=== PATIENT | female | born 1960 | race Caucasian/White ===

== ENCOUNTER → 2021-05-03 09:47 | Outpatient (CLI) | payer OTHER, SELFPAY ==
[2015-04-16 17:54] VITALS: BMI 31.2
[2021-05-03 11:24] LABS: Absolute Lymphocyte Count 1.68 X10^3/uL (0.83-4.51); Absolute Neutrophil Count 2.7 X10^3/uL (2.0-7.7); Basophil# 0.05 X10^3/uL; Eosinophil# 0.28 X10^3/uL; Eosinophils% 5.4 % (0-5); Hemoglobin 12.2 g/dL (12.0-15.0); Lymphocyte # 1.68 X10^3/ul (0.83-4.51); Lymphocyte % 32.3 % (19-41); Mean Corp Hgb Conc 32.1 g/dL (32-36); Mean Corpuscular Hgb 28.8 pg (27.0-32.0); Mean Corpuscular Volume 89.6 fL (81-99); Mean Platelet Vol. 9.2 fl (6.2-12.0); Monocyte# 0.53 X10^3/uL; Monocyte% 10.2 % (0-10); NRBC Flagged by Analyzer 0 % (0-5); Neutrophil # 2.65 X10^3/uL (2.7-7.7); Neutrophil % 50.9 % (47-70); Platelet Count 236 K/mm3 (150-450); RBC Distribution Width CV 13.4 % (11.6-14.6); RBC Distribution Width SD 43.9 fl (35.1-43.9); Red Blood Count 4.24 M/mm3 (4.2-5.4); White Blood Count 5.2 K/mm3 (4.4-11.0)
[2021-05-03 11:58] LABS: ALB/GLOB Ratio 1.1 RATIO (0.9-2.4); AST(SGOT) 19 U/L (15-37); Alanine Aminotransfer ALT/SGPT 28 U/L (13-56); Albumin, Serum 3.8 g/dL (3.2-5.0); Alkaline Phosphatase 54 U/L (45-117); Anion Gap 6 (5-15); BUN 21 mg/dL (7-18); BUN/Creat Ratio 33.3 RATIO (10-20); Calcium,Total 8.9 mg/dL (8.5-10.1); Chloride 104 mmol/L (98-107); Creatinine, Serum 0.63 mg/dL (0.55-1.02); EST Glomerular Filtration Rate 103 mL/min (>60); Est Glom Filt Rate - Afr Amer 124 mL/min (>60); Ferritin 119 ng/mL (8-252); Globulin 3.5 g/dL (2.2-4.2); Glucose 89 mg/dL (74-106); Iron 69 ug/dL (50-170); Iron Binding Capacity,Total 239 ug/dL (250-450); Potassium 3.9 mmol/L (3.5-5.1); Protein, Total 7.3 g/dL (6.4-8.2); Sodium Level 138 mmol/L (136-145)
== END ==
PROVIDERS: PCP Family Medicine
DX: D68.59 Other primary thrombophilia (principal)
CPT/HCPCS: 36415; 80053; 82728; 83540; 83550; 85025

== ENCOUNTER 2024-03-27 22:10 | Inpatient (IN) | payer OTHER, SELFPAY ==
[2024-03-27 22:12] VITALS: BP 133/75; PULSE 109; RESP 16; TEMP 37.1; O2SAT 98; BMI 27.4
[2024-03-27 22:14] VITALS: BP 133/75; PULSE 19; RESP 16; TEMP 37.1; O2SAT 98
[2024-03-27 22:43] VITALS: TEMP 37.8
[2024-03-27 22:45] LABS: Absolute Lymphocyte Count 0.29 X10^3/uL (0.83-4.51); Absolute Neutrophil Count 10.1 X10^3/uL (2.0-7.7); Basophil# 0.02 X10^3/uL; Basophil% 0.2 % (0-1); Eosinophil# 0.02 X10^3/uL; Eosinophils% 0.2 % (0-5); Hematocrit 35.7 % (37-47); Hemoglobin 11.8 g/dL (12.0-15.0); Lymphocyte # 0.29 X10^3/ul (0.83-4.51); Lymphocyte % 2.7 % (19-41); Mean Corp Hgb Conc 33.1 g/dL (32-36); Mean Corpuscular Hgb 28.9 pg (27.0-32.0); Mean Corpuscular Volume 87.3 fL (81-99); Mean Platelet Vol. 8.5 fl (6.2-12.0); Monocyte# 0.37 X10^3/uL; Monocyte% 3.4 % (0-10); NRBC Flagged by Analyzer 0 % (0-5); Neutrophil # 10.06 X10^3/uL (2.7-7.7); POSITIVE DIFFERENTIAL YES; Platelet Count 205 K/mm3 (150-450); RBC Distribution Width CV 13.7 % (11.6-14.6); RBC Distribution Width SD 43.8 fl (35.1-43.9); Red Blood Count 4.09 M/mm3 (4.2-5.4); White Blood Count 10.8 K/mm3 (4.4-11.0)
--- NOTE | 2024-03-27 22:46 | US_ITS ---
STUDY: VENOUS DOPPLER ULTRASOUND - RIGHT LOWER EXTREMITY REASON FOR EXAM: Female, 63 years old. right leg pain TECHNIQUE: Ultrasound evaluation of the deep vein system to include wood-scale imaging and compression was performed. Wood-scale imaging and Doppler sonographic evaluation, including duplex spectral analysis and qualitative color flow sonography, was performed. COMPARISON: None. FINDINGS: Common Femoral Vein: Normal compression, spontaneity and augmentation. Normal color Doppler. Common Femoral Vein/Greater Saphenous Junction: Normal compression, spontaneity and augmentation. Normal color Doppler. Deep Femoral Vein: Normal compression, spontaneity and augmentation. Normal color Doppler. Femoral Proximal: Normal compression, spontaneity and augmentation. Normal color Doppler. Femoral Middle: Normal compression, spontaneity and augmentation. Normal color Doppler. Femoral Distal: Normal compression, spontaneity and augmentation. Normal color Doppler. Popliteal Vein: Normal compression, spontaneity and augmentation. Normal color Doppler. Posterior Tibial Vein: Normal compression, spontaneity and augmentation. Normal color Doppler. Peroneal Vein: Normal compression, spontaneity and augmentation. Normal color Doppler. US/Venous Duplex Imag/Limited/Uni IMPRESSION: Normal venous Doppler ultrasound of the lower extremity. Electronically Signed: Prieto Velásquez MD at 23:54 EDT ,
--- NOTE | 2024-03-27 22:51 | EDS_ITS ---
HPI <Dr. Osman Aaron MD - Last Filed: 03/28/24 00:08> History of Present Illness Chief Complaint: General Illness Detail of Chief Complaint: Ache, right medial proximal thigh pain Informant: patient Onset/Context/Timing Onset: Today (Approximately 1400) Context: Sudden Onset Timing: Continuous Quality: Aching discomfort right medial thigh and achiness all over Location: Document under quality Current Severity: Mild Maximum Severity: Severe Worsened by: Palpation of the medial right thigh and inguinal area Relieved by: Nothing Associated Symptoms Associated Symptoms: Patient did complain of chills. She denied fever. She did take ibuprofen Narrative Narrative: Patient is a 63-year-old woman. She has history of DVT right lower extremity and PE. She is on Xarelto. She states she has not missed any of her doses. She sees a liability analyst oncologist because the PE and DVT were unprovoked. She has no history of cancer. She denies recent upper respiratory viral symptoms. She denies cough or shortness of breath. She denies abdominal pain. She denies nausea, vomit diarrhea. She denies dysuria, frequency, urgency or hematuria. She has not noted any skin lesions. When asked if she has ever had pain like this before she states when I was diagnosed with blood clot my leg. Prior similar symptoms: Yes Recent Illness/Hospitalization: No PFSH <Dr. Osman Aaron MD - Last Filed: 03/28/24 00:08> [facility] Medical History (Updated 03/28/24 @ 02:[address] Jack Corona DO) Hyperlipemia Atrial fibrillation Hx of pulmonary embolus Hx of deep venous thrombosis Home Medications ?Medication ?Instructions ?Recorded ?Last Taken ?Type ezetimibe 10 mg tablet 10 mg PO DAILY 03/27/24 Unknown History rivaroxaban 20 mg tablet (Xarelto) 20 mg PO QPM 03/27/24 Unknown History Allergy/AdvReac Type Severity Reaction Status Date / Time No Known Allergies Allergy Verified 03/27/24 22:11 Family History (Updated 03/28/24 @ 02:[address] Cheryl Parr MD) Grandfather Heart disease Grandmother Heart disease Surgical History Hx of cholecystectomy Social History (Updated 03/27/24 @ 22:[address] Osman Aaron MD) household members: spouse Smoking Status: Never smoker alcohol intake: never substance use type: does not use ROS <Dr. Osman Aaron MD - Last Filed: 03/28/24 00:08> ROS ED Constitutional Constitutional ED: Reports chills; Denies fever(s), subjective or sweats Eyes Eyes: Denies blurry vision, change in vision or diplopia ENT ENT ED: Denies ear pain, rhinorrhea or sore throat Cardiovascular Cardiovascular: Denies chest pain, orthopnea, palpitations, paroxysmal nocturnal dyspnea or racing heartbeat Respiratory/Chest Respiratory/Chest: Denies cough, dyspnea, dyspnea on exertion, orthopnea, paroxysmal nocturnal dyspnea or sputum Gastrointestinal Gastrointestinal: Reports abdominal pain; Denies constipation, diarrhea, melena, nausea or vomiting Genitourinary Genitourinary ED: Denies dysuria, hematuria or urinary frequency Musculoskeletal Musculoskeletal: Reports arthralgias and myalgias; Denies back pain or neck pain Integumentary Denies abscess or rash Neurologic Neurologic: Denies paresthesias or weakness Endocrine Endocrinology: Denies cold intolerance or heat intolerance Hematologic/Lymphatic Hematologic/Lymphatic: Reports systems reviewed and no addt'l complaints, except as documented EXAM <Dr. Osman Aaron MD - Last Filed: 03/28/24 00:08> Physical Exam Const Vital Signs: 03/27/24 22:12 03/27/24 22:14 03/27/24 22:22 Temperature 98.8 F 98.8 F Temperature Source Temporal Temporal Pulse Rate 109 H 19 L Respiratory Rate 16 16 Respiratory Effort Normal Respiratory Pattern Tachypnea Blood Pressure 133/75 H 133/75 H Blood Pressure Mean 94 94 Pulse Ox 98 98 Oxygen Delivery Method Room Air Room Air 03/27/24 22:43 03/27/24 23:14 03/28/24 00:00 Temperature 100.1 F H 100.1 F H 99 F Temperature Source Oral Oral Oral Pulse Rate 96 98 Respiratory Rate 14 19 H Respiratory Effort Respiratory Pattern Blood Pressure 98/52 L 106/57 L Blood Pressure Mean 67 73 Pulse Ox 97 95 Oxygen Delivery Method Room Air Room Air 03/28/24 00:00 03/28/24 00:58 03/28/24 02:00 Temperature 99 F 98.1 F 98.2 F Temperature Source Oral Oral Oral Pulse Rate 86 87 Respiratory Rate 16 15 Respiratory Effort Respiratory Pattern Blood Pressure 96/57 L 89/47 L Blood Pressure Mean 70 61 Pulse Ox 98 95 Oxygen Delivery Method Room Air Room Air 03/28/24 02:00 Temperature Temperature Source Pulse Rate 87 Respiratory Rate Respiratory Effort Respiratory Pattern Blood Pressure Blood Pressure Mean Pulse Ox Oxygen Delivery Method Positive well nourished and well developed Constitutional Narrative: Appears uncomfortable and ill. Patient felt much warmer than documented temperature. Nurse was asked to repeat and is 100.1. General Appearance ED: well developed and pallor HEENT Reports dry mucous membranes HEENT Narrative: Head is atraumatic normocephalic. Ears normal. Nares patent. Posterior pharynx is normal. Mouth ED: Yes dry mucous membranes Mouth: dry mucous membranes Eyes PERRL and EOMs intact bilaterally General Eye ED: Negative for pale conjunctiva or scleral icterus Neck no lymphadenopathy, supple and no JVD Chest Wall inspection of chest normal and palpation of chest normal Resp normal respiratory effort and clear to auscultation bilaterally Cardio regular rhythm, S1 normal heart sound and S2 normal heart sound Rate: tachycardic GI normal to inspection, nondistended, normoactive bowel sounds, non-tender, non- distended and no masses; Negative for hepatosplenomegaly Auscultation: hypoactive bowel sounds Palpation: soft Narrative: Patient has significant tenderness right inguinal area possibly shoddy nodes. Difficult to assess because of patient complaining of severe pain. Back/Spine no CVA tenderness Extremity Extremity Narrative: Old scar medial right leg. There is no discoloration, there is slight prominent vessels in the thigh compared to the left. Patient states that is normal. There is no asymmetry. There is tenderness in the abductor canal. General Extremety ED: Yes tenderness; Negative for edema General Extremity: Negative for edema Neuro oriented x3 and CN's II-XII intact bilaterally Sensorium / Orientation: alert Psych mental status grossly normal Skin no rashes or lesions noted, no wounds and skin turgor normal General Skin Exam: pallor; Negative for jaundice <Dr. Jack Corona, DO - Last Filed: 03/28/24 02:21> Physical Exam Const Vital Signs: 03/27/24 22:12 03/27/24 22:14 03/27/24 22:22 Temperature 98.8 F 98.8 F Temperature Source Temporal Temporal Pulse Rate 109 H 19 L Respiratory Rate 16 16 Respiratory Effort Normal Respiratory Pattern Tachypnea Blood Pressure 133/75 H 133/75 H Blood Pressure Mean 94 94 Pulse Ox 98 98 Oxygen Delivery Method Room Air Room Air 03/27/24 22:43 03/27/24 23:14 03/28/24 00:00 Temperature 100.1 F H 100.1 F H 99 F Temperature Source Oral Oral Oral Pulse Rate 96 98 Respiratory Rate 14 19 H Respiratory Effort Respiratory Pattern Blood Pressure 98/52 L 106/57 L Blood Pressure Mean 67 73 Pulse Ox 97 95 Oxygen Delivery Method Room Air Room Air 03/28/24 00:00 03/28/24 00:58 03/28/24 02:00 Temperature 99 F 98.1 F 98.2 F Temperature Source Oral Oral Oral Pulse Rate 86 87 Respiratory Rate 16 15 Respiratory Effort Respiratory Pattern Blood Pressure 96/57 L 89/47 L Blood Pressure Mean 70 61 Pulse Ox 98 95 Oxygen Delivery Method Room Air Room Air 03/28/24 02:00 Temperature Temperature Source Pulse Rate 87 Respiratory Rate Respiratory Effort Respiratory Pattern Blood Pressure Blood Pressure Mean Pulse Ox Oxygen Delivery Method MDM <Dr. Osman Aaron MD - Last Filed: 03/28/24 00:08> [facility] Narrative Medical decision making narrative: The to evaluate for VTE which can cause elevated temperature. She may also have atypical presentation for infectious process with aches. Clinically I do not believe she has an abscess of her right thigh. There is no erythema, induration or warmth of the right thigh compared to the left. Workup included venous duplex study, CBC and comprehensive metabolic panel to assess white count, H&H differential as well as for any endorgan dysfunction since infectious process is in the differential. Her second set of vitals documented 2243 reveals a pulse of 19. Suspect it is 109. Her repeat temperature is now 100.1. Lab Data Attestation: I reviewed the patient's lab results. Lab results narrative: White count is upper end of normal with shift. H&H reveals mild anemia with normal indices. Comprehensive metabolic panel is unremarkable. Glucose is elevated 123 with a normal CO2 anion gap. Lactate is normal. Labs: Laboratory Results - last 24 hr 03/27/24 22:36 WBC 10.8 RBC 4.09 L Hgb 11.8 L Hct 35.7 L MCV 87.3 MCH 28.9 MCHC 33.1 RDW Std Deviation 43.8 RDW Coeff of Becky 13.7 Plt Count 205 MPV 8.5 Immature Gran % (Auto) 0.500 Neut % (Auto) 93.0 H Lymph % (Auto) 2.7 L Hardin % (Auto) 3.4 Eos % (Auto) 0.2 Baso % (Auto) 0.2 Absolute Neuts (auto) 10.1 H Absolute Lymphs (auto) 0.29 L Nucleated RBC % 0 Differential Comment SEE COMMENT Platelet Estimate ADEQUATE RBC Morphology N CHROM Anisocytosis RARE Sodium 137 Potassium 3.6 Chloride 104 Carbon Dioxide 26.0 Anion Gap 7 BUN 15 Creatinine 0.85 Estim Creat Clear Calc 70.37 Est GFR (MDRD) Af Amer 88 Est GFR (MDRD) Non-Af 72 BUN/Creatinine Ratio 17.7 Glucose 123 H Lactic Acid 1.0 Calcium 9.1 Total Bilirubin 0.60 AST 23 ALT 33 Alkaline Phosphatase 62 Total Protein 7.1 Albumin 4.1 Globulin 3.0 Albumin/Globulin Ratio 1.4 Radiography Diagnostic Testing: Clinical Impression(s) from Imaging Studies Venous Duplex 03/27/24 22:46 IMPRESSION: Normal venous Doppler ultrasound of the lower extremity. Electronically Signed: Prieto Velásquez MD at 23:54 EDT , Lower Extremity CT 03/28/24 00:05 IMPRESSION: Hazy fat stranding of the right inguinal region without organized fluid collection, to suggest abscess. No acute osseous abnormality of the left thigh. Electronically Signed: Jaun Fregoso MD at 1:49 EDT , Venous duplex study results were read. Additional Tests and Interventions Additional Tests or Interventions: Reviewing patient's document, vital signs I noted that her blood pressure was documented being 98/52 at 2314 and her temperature at that time was 100.1. Nurse was asked to repeat her temperature since she was feels much warmer than 100.1 and a liter bolus was ordered. Blood cultures were ordered at this time. She still complains of the amount of pain. She was administered 4 mg of morphine by the nurse. CT of the right femur/thigh was ordered with contrast to assess for fasciitis, abscess. <Dr. Jack Corona, DO - Last Filed: 03/28/24 02:21> [facility] Lab Data Labs: Laboratory Results - last 24 hr 03/27/24 22:36 WBC 10.8 RBC 4.09 L Hgb 11.8 L Hct 35.7 L MCV 87.3 MCH 28.9 MCHC 33.1 RDW Std Deviation 43.8 RDW Coeff of Becky 13.7 Plt Count 205 MPV 8.5 Immature Gran % (Auto) 0.500 Neut % (Auto) 93.0 H Lymph % (Auto) 2.7 L Hardin % (Auto) 3.4 Eos % (Auto) 0.2 Baso % (Auto) 0.2 Absolute Neuts (auto) 10.1 H Absolute Lymphs (auto) 0.29 L Nucleated RBC % 0 Differential Comment SEE COMMENT Platelet Estimate ADEQUATE RBC Morphology N CHROM Anisocytosis RARE Sodium 137 Potassium 3.6 Chloride 104 Carbon Dioxide 26.0 Anion Gap 7 BUN 15 Creatinine 0.85 Estim Creat Clear Calc 70.37 Est GFR (MDRD) Af Amer 88 Est GFR (MDRD) Non-Af 72 BUN/Creatinine Ratio 17.7 Glucose 123 H Lactic Acid 1.0 Calcium 9.1 Total Bilirubin 0.60 AST 23 ALT 33 Alkaline Phosphatase 62 Total Protein 7.1 Albumin 4.1 Globulin 3.0 Albumin/Globulin Ratio 1.4 Radiography Diagnostic Testing: Clinical Impression(s) from Imaging Studies Venous Duplex 03/27/24 22:46 IMPRESSION: Normal venous Doppler ultrasound of the lower extremity. Electronically Signed: Prieto Velásquez MD at 23:54 EDT , Lower Extremity CT 03/28/24 00:05 IMPRESSION: Hazy fat stranding of the right inguinal region without organized fluid collection, to suggest abscess. No acute osseous abnormality of the left thigh. Electronically Signed: Jaun Fregoso MD at 1:49 EDT , Management Discussion w/another healthcare provider: Hospitalist Additional Tests and Interventions Additional Tests or Interventions: Reviewing patient's document, vital signs I noted that her blood pressure was documented being 98/52 at 2314 and her temperature at that time was 100.1. Nurse was asked to repeat her temperature since she was feels much warmer than 100.1 and a liter bolus was ordered. Blood cultures were ordered at this time. She still complains of the amount of pain. She was administered 4 mg of morphi ne by the nurse. CT of the right femur/thigh was ordered with contrast to assess for fasciitis, abscess. The patient was signed out to me while awaiting results of her CT scan. The CT scan revealed fat stranding concerning for infection without obvious fluid collection or necrotic lymph node. The patient developed a low-grade fever and also dropped her blood pressure while she was in the ER. At this time as she has persistent pain and inflammatory changes on her CT scan as well as borderline hypotension the safest option is to start IV antibiotics and admit to the hospital for further monitoring while blood cultures are pending. Secondary to this the case was discussed with the hospitalist and she agrees to admit the patient for continued care. Discharge Plan Triage Chief Complaint: General Illness ED Provider: Osman Aaron Dx/Rx/DC Orders Clinical Impression: Cellulitis of leg, right, Hypotension, Current use of intermodal owner operator truck driver anticoagulation Prescriptions: No Action ezetimibe 10 mg tablet 10 mg PO DAILY Xarelto 20 mg tablet 20 mg PO QPM Primary Care Provider: Devon Braden Referrals: Devon Braden DO [Primary Care Provider] - Print Language: Kosovan Disposition Disposition: Acute Care Hospital [facility]
[2024-03-27 23:08] LABS: ALB/GLOB Ratio 1.4 RATIO (0.9-2.4); AST(SGOT) 23 U/L (15-37); Alanine Aminotransfer ALT/SGPT 33 U/L (13-56); Albumin, Serum 4.1 g/dL (3.2-5.0); Alkaline Phosphatase 62 U/L (45-117); Anion Gap 7 (5-15); BUN 15 mg/dL (7-18); BUN/Creat Ratio 17.7 RATIO (10-20); Calcium,Total 9.1 mg/dL (8.5-10.1); Chloride 104 mmol/L (98-107); Creatinine, Serum 0.85 mg/dL (0.55-1.02); EST Glomerular Filtration Rate 72 mL/min (>60); Est Glom Filt Rate - Afr Amer 88 mL/min (>60); Estimated Creatinine Clearance 70.37 ml/min; Glucose 123 mg/dL (74-106); Potassium 3.6 mmol/L (3.5-5.1); Protein, Total 7.1 g/dL (6.4-8.2); Sodium Level 137 mmol/L (136-145)
[2024-03-27 23:10] LABS: Differential Indicated SCAN CRITERIA MET
[2024-03-27 23:14] VITALS: BP 98/52; PULSE 96; RESP 14; TEMP 37.8; O2SAT 97
[2024-03-27 23:14] LABS: Anisocytosis RARE; Platelet Estimate ADEQUATE (ADEQ); Red Cell Morphology N CHROM NORMAL (NORM C&C)
[2024-03-28] VITALS (9 sets, daily range): BP systolic 89–113; BP diastolic 47–65; PULSE 83–98; RESP 15–19; TEMP 36.7–37.2; O2SAT 93–98; BMI 29.2; BMI 29.7
--- NOTE | 2024-03-28 00:05 | CT_ITS ---
INDICATION: fever,hypotension, pain thigh EXAMINATION/TECHNIQUE: X-RAY - RIGHT CT Lower Extremity W/ Contrast Injection COMPARISON: None. A radiation dose optimization technique was used for this scan. IV contrast: 100 cc [id number] IV. FINDINGS: Contrast enhanced serial CT axial images through the hip and femur with coronal and sagittal reformatted series. SOFT TISSUES: Hazy fat stranding of the right inguinal region without organized fluid collection. BONES: Normal anatomic alignment without evidence of fracture or subluxation. No concerning bony lesion or abnormal sclerosis to suggest lesion. JOINTS: No significant degenerative change. CT/Extremity Lower WITH Contrast IMPRESSION: Hazy fat stranding of the right inguinal region without organized fluid collection, to suggest abscess. No acute osseous abnormality of the left thigh. Electronically Signed: Jaun Fregoso MD at 1:49 EDT ,
[2024-03-28] MEDS: 0.9% Normal Saline (1000mL) 1,000 ML 1000 ML IV (00:20)
[2024-03-28] MEDS: Ondansetron 4 MG/2 ML Vial IV (00:21)
[2024-03-28] MEDS: Morphine 4 MG/ML Syringe IV (00:21)
[2024-03-28] MEDS: 0.9% Normal Saline (1000mL) 1,000 ML 999 ML IV (02:14)
--- NOTE | 2024-03-28 02:18 | PCM.HP.STD ---
HPI - General General Date of Admission: 03/28/24 Date of Service: 03/28/24 Chief Complaint: RLE pain/groin pain. HPI Narrative The patient is a 63 y/o F w/ PMHx: Hx VTE (DVT, PE), PAF, HLD, Chronic anemia who presents to the [facility] ED on 03/28/24 with history of right proximal thigh discomfort and aching starting approximately 1400 on day prior to presentation noted to be continuous with pain waxing and waning ranging mild to severe in severity with pain specifically in the medial right thigh and also into the inguinal region with chills but no specific fever with self administration of ibuprofen with no recent URI type symptoms or any nausea, emesis, abdominal pain or diarrhea no urinary symptoms with no associated skin lesions over that region but given ongoing pain and previous history of DVT despite her ongoing usage of her Xarelto prompted ED evaluation. Her pain at its worst prior to treatment in the ED was 10 out of 10 in severity now down to 2 out of 10 following ED pain medication administration. She still is significantly tender with any attempted palpation of the right groin and right upper medial inner thigh region. She denies any recent injury or fall. Workup in the ED included Tmax 100.1, heart rate 109, BP 133/75, respiratory rate 16, 98% on room air with most recent current repeat vital signs T98.1, heart rate 86, BP 96/57, respiratory rate 16, 98% on room air, CBC with WC 10.8, hemoglobin 0.8, MCV 87.3, platelet 205 with left shift and lymphopenia, CMP with glucose 123 otherwise unremarkable, lactic acid 1.0, duplex ultrasound right lower extremity with no evidence of any DVT, follow-up right CT lower extremity with contrast with hazy fat stranding in the right inguinal region without any organized fluid collection with no acute osseous abnormality of the left thigh, blood culture x 2 pending per ED. In the ED patient ministered 2 L normal saline, Zofran 4 mg IV x 1, morphine 4 mg IV x 1, zosyn IV x 1. [facility] Medical History Hyperlipemia Atrial fibrillation Hx of pulmonary embolus Hx of deep venous thrombosis Home Medications ?Medication ?Instructions ?Recorded ?Last Taken ?Type ezetimibe 10 mg tablet 10 mg PO DAILY 03/27/24 Unknown History rivaroxaban 20 mg tablet (Xarelto) 20 mg PO QPM 03/27/24 Unknown History Allergy/AdvReac Type Severity Reaction Status Date / Time No Known Allergies Allergy Verified 03/27/24 22:11 Family History Grandfather Heart disease Grandmother Heart disease Father CAD (coronary artery disease) Heart disease Hypertension Myocardial infarction Renal cancer Mother No problems noted. Surgical History Hx of cholecystectomy Social History household members: spouse Smoking Status: Never smoker alcohol intake: never substance use type: does not use ROS ROS Narrative Admission Review of Systems: CONSTITUTIONAL: No weight loss, chills, + fever, weakness or fatigue. HEENT: Eyes: No visual loss, blurred vision, double vision or yellow sclerae. Ears, Nose, Throat: No hearing loss, sneezing, congestion, runny nose or sore throat. SKIN: No rash or itching, lesions, wounds. CARDIOVASCULAR: No chest pain, chest pressure or chest discomfort, palpitations, edema, orthopnea, syncopal events. RESPIRATORY: No shortness of breath, cough or sputum, wheezing, hemoptysis. GASTROINTESTINAL: No anorexia, nausea, vomiting or diarrhea, abdominal pain, melena, BRBPR. GENITOURINARY: No dysuria, frequency, urgency or retention. NEUROLOGICAL: No headache, dizziness, syncope, paralysis, ataxia, numbness or tingling in the extremities, focal weakness, change in bowel or bladder control, seizure. MUSCULOSKELETAL: + muscle, back pain, joint pain or stiffness. HEMATOLOGIC: No anemia, bleeding or bruising. LYMPHATICS: No enlarged nodes. No history of splenectomy. PSYCHIATRIC: No history of depression or anxiety. ENDOCRINOLOGIC: No reports of sweating, cold or heat intolerance. No polyuria or polydipsia. ALLERGIES: No history of asthma, hives, eczema or rhinitis. Vital Signs Vital Signs Vital Signs: 03/27/24 22:12 03/27/24 22:14 03/27/24 22:22 Temperature 98.8 F 98.8 F Temperature Source Temporal Temporal Pulse Rate 109 H 19 L Respiratory Rate 16 16 Respiratory Effort Normal Respiratory Pattern Tachypnea Blood Pressure 133/75 H 133/75 H Blood Pressure Mean 94 94 Pulse Ox 98 98 Oxygen Delivery Method Room Air Room Air 03/27/24 22:43 03/27/24 23:14 03/28/24 00:00 Temperature 100.1 F H 100.1 F H 99 F Temperature Source Oral Oral Oral Pulse Rate 96 98 Respiratory Rate 14 19 H Respiratory Effort Respiratory Pattern Blood Pressure 98/52 L 106/57 L Blood Pressure Mean 67 73 Pulse Ox 97 95 Oxygen Delivery Method Room Air Room Air 03/28/24 00:00 03/28/24 00:58 03/28/24 02:00 Temperature 99 F 98.1 F 98.2 F Temperature Source Oral Oral Oral Pulse Rate 86 87 Respiratory Rate 16 15 Respiratory Effort Respiratory Pattern Blood Pressure 96/57 L 89/47 L Blood Pressure Mean 70 61 Pulse Ox 98 95 Oxygen Delivery Method Room Air Room Air 03/28/24 02:00 Temperature Temperature Source Pulse Rate 87 Respiratory Rate Respiratory Effort Respiratory Pattern Blood Pressure Blood Pressure Mean Pulse Ox Oxygen Delivery Method Weight Weight: 165 lb Body Mass Index (BMI) 27.4 Physical Exam Narrative Physical Examination: General: Awake, alert, oriented x 3 and cooperative, laying in the ED bed, notes right groin and upper medial thigh pain and down to 2 out of 10 but more severe with any palpation attempting evaluation. Skin: Normal color, normal turgor, no icterus, no cyanosis and specifically no evidence of any erythema or recent wound or small skin char or bite in the right groin or right upper medial thigh region, bilateral lower extremity right greater than left venous skin stasis changes. HEENT: AT/NC, EOMI, PERRLA, dry MM, no carotid bruits or JVD noted. Lungs: CTA bilaterally, moderate effort, mild decrease BL bases, no rales, ronchi or wheezing. Heart: Regular rate and rhythm; no gallop, rub audible, + SM. Abdomen: Soft, overweight, NTTP, ND, distant normal BS, no HSM. Extremities: No cyanosis, no clubbing, no marked peripheral edema. Significant pain with palpation of the right groin and right medial upper thigh even with minimal pressure. Neurological: Patient awake, alert, oriented as noted, cognitive function intact; pupils equally reactive to light and accommodation, cranial nerves grossly normal, moving all 4 extremities, no focal deficits, strength severely globally decreased secondary to acute pain presentation Psychiatric: Affect appears fatigued, uncomfortable, no acute evidence of depressive or anxiety feelings. Results Lab / Micro Data 03/27/24 22:36 03/27/24 22:36 Labs: Laboratory Results - last 24 hr 03/27/24 22:36: WBC 10.8, RBC 4.09 L, Hgb 11.8 L, Hct 35.7 L, MCV 87.3, MCH 28.9, MCHC 33.1, RDW Std Deviation 43.8, RDW Coeff of Becky 13.7, Plt Count 205, MPV 8.5, Immature Gran % (Auto) 0.500, Neut % (Auto) 93.0 H, Lymph % (Auto) 2.7 L, Mora % (Auto) 3.4, Eos % (Auto) 0.2, Baso % (Auto) 0.2, Absolute Neuts (auto) 10.1 H, Absolute Lymphs (auto) 0.29 L, Nucleated RBC % 0, Differential Comment SEE COMMENT, Platelet Estimate ADEQUATE, RBC Morphology N CHROM, Anisocytosis RARE, Sodium 137, Potassium 3.6, Chloride 104, Carbon Dioxide 26.0, Anion Gap 7, BUN 15, Creatinine 0.85, Estim Creat Clear Calc 70.37, Est GFR (MDRD) Af Amer 88, Est GFR (MDRD) Non-Af 72, BUN/Creatinine Ratio 17.7, Glucose 123 H, Lactic Acid 1.0, Calcium 9.1, Total Bilirubin 0.60, AST 23, ALT 33, Alkaline Phosphatase 62, Total Protein 7.1, Albumin 4.1, Globulin 3.0, Albumin/Globulin Ratio 1.4 Imaging Radiology Impression Venous Duplex 03/27/24 22:46 IMPRESSION: Normal venous Doppler ultrasound of the lower extremity. Electronically Signed: Prieto Velásquez MD at 23:54 EDT , Lower Extremity CT 03/28/24 00:05 IMPRESSION: Hazy fat stranding of the right inguinal region without organized fluid collection, to suggest abscess. No acute osseous abnormality of the left thigh. Electronically Signed: Jaun Fregoso MD at 1:49 EDT , Assessment & Plan Assessment/Plan (1) Cellulitis of leg, right: PLAN: Plan The patient is a 63 y/o F w/ PMHx: Hx VTE (DVT, PE), PAF, HLD, Chronic anemia who presents to the [facility] ED on 03/28/24 with history of right proximal thigh discomfort and aching starting approximately 1400 on day prior to presentation noted to be continuous with pain waxing and waning ranging mild to severe in severity with pain specifically in the medial right thigh and also into the inguinal region with chills but no specific fever with self administration of ibuprofen with no recent URI type symptoms or any nausea, emesis, abdominal pain or diarrhea no urinary symptoms with no associated skin lesions over that region but given ongoing pain and previous history of DVT despite her ongoing usage of her Xarelto prompted ED evaluation. #1. Intractable right lower extremity pain with hazy fat stranding in the right inguinal region with no evidence of any abscess concerning for acute cellulitic infection with fever, hypotension, L shift present: Will admit to PCU, will continue planned 30 cc/kg bolus as discussed with ED, now on her 2L (being initiated in the ED), will maintain on IV vanc and zosyn given severity with requested MRSA screen but once clinically improving would plan to de-escalate therapy, will request ESR and CRP, plan repeat CBC in AM, will elevate this region of the body as able however difficult given in the pelvic region, monitor for onset of any outward showing and demonstrated erythema, will have IV Toradol scheduled x 5 doses as well as as needed additional pain regimen. Procalcitonin requested. #2. Normocytic anemia: Admission hemoglobin 11.8, MCV 87.3, baseline hemoglobin primarily 12, however this lab is remote, will continue to trend CBC. #3. History of VTE: Patient status post history of DVT, PE, will continue patient home chronic Xarelto regimen. Duplex ultrasound as noted upon presentation given concerns right lower extremity negative. #4. PAF: Not on any rate or rhythm agent, occurred when she had PE and resolved, will continue chronic Xarelto home regimen. #5. Hyperlipidemia: We will continue patient ezetimibe home regimen. #6. DVT prophylaxis: Will continue patient home Xarelto regimen. Charges/Coding Visit Charges Inpatient E&M: 66392 Init Hosp L3
[2024-03-28] MEDS: Piperacil/Tazobactam 3.375 GM in 0.9% Normal Saline (50mL MB+) 50 ML IV ×3 (02:32→21:03)
[2024-03-28 02:41] LABS: Erythrocyte Sedimentation Rate 17 mm/hr (0-30)
[2024-03-28] MEDS: 0.9% Normal Saline (1000mL) 1,000 ML 100 ML IV (03:54)
[2024-03-28] MEDS: Vancomycin HCl 2,000 MG in 0.9% Normal Saline (500mL Bag) 500 ML 250 MG IV (03:58)
--- NOTE | 2024-03-28 04:12 | PCM.RX.CS ---
Consult Antibiotic Management Pharmacy has been consulted to manage selected antibiotic: Vancomycin Type of Intervention Type of Consult: New start Suspected Infection Suspected Infection: Skin/Soft tissue Labs Labs: Sodium 137 mmol/L (136-145) 03/27/24 22:36 Potassium 3.6 mmol/L (3.5-5.1) 03/27/24 22:36 Chloride 104 mmol/L (98-107) 03/27/24 22:36 Carbon Dioxide 26.0 mmol/L (21.0-32.0) 03/27/24 22:36 Anion Gap 7 (5-15) 03/27/24 22:36 BUN 15 mg/dL (7-18) 03/27/24 22:36 Creatinine 0.85 mg/dL (0.55-1.02) 03/27/24 22:36 Est GFR (MDRD) Af Amer 88 mL/min (>60) 03/27/24 22:36 Est GFR (MDRD) Non-Af 72 mL/min (>60) 03/27/24 22:36 BUN/Creatinine Ratio 17.7 RATIO (10-20) 03/27/24 22:36 Glucose 123 mg/dL (74-106) H 03/27/24 22:36 Dosing Weight Weight used for dosin.1 kg Estimated Creatinine Clearance Estimated Creatinine Clearance: 72 Goal Trough Goal Trough: 15-20 mcg/mL Pharmacy Plan for Drug Dosing Pharmacy Plan for Drug Dosing: NEW START IV VANCOMYCIN Consulting Physician: Dr. Parr Indication: Cellulitis Goal Trough: 15-20 SrCr: 0.85 CrCl: 72 ml/min Comments: Loading dose 2000mg x1 given @ 03:58 03/28/24 Vancomycin Dose: 1000mg Q12H to start @ 16:00 03/28/24 Pending Level: Vancomycin trough @ 15:30 03/29/24 Pharmacy Service will continue to monitor and adjust dosing as required. Follow-Up Labs Follow-Up Labs: Trough: Vancomycin (15:30 03/29/24)
[2024-03-28 04:17] LABS: Procalcitonin 4.29 ng/mL (0.00-0.09)
[2024-03-28] MEDS: Ketorolac 15 MG/ML Vial IV (05:48)
[2024-03-28 06:07] LABS: M R Staph aureus DNA By PCR Negative (Negative); Probe Check PASS
[2024-03-28 06:59] LABS: Absolute Lymphocyte Count 0.69 X10^3/uL (0.83-4.51); Absolute Neutrophil Count 7.8 X10^3/uL (2.0-7.7); Basophil# 0.03 X10^3/uL; Basophil% 0.3 % (0-1); Eosinophil# 0.01 X10^3/uL; Eosinophils% 0.1 % (0-5); Hematocrit 29.6 % (37-47); Hemoglobin 9.7 g/dL (12.0-15.0); Lymphocyte # 0.69 X10^3/ul (0.83-4.51); Lymphocyte % 7.8 % (19-41); Mean Corp Hgb Conc 32.8 g/dL (32-36); Mean Corpuscular Volume 88.6 fL (81-99); Mean Platelet Vol. 8.6 fl (6.2-12.0); Monocyte# 0.26 X10^3/uL; NRBC Flagged by Analyzer 0 % (0-5); Neutrophil # 7.75 X10^3/uL (2.7-7.7); Neutrophil % 88.1 % (47-70); Platelet Count 166 K/mm3 (150-450); RBC Distribution Width CV 14.1 % (11.6-14.6); RBC Distribution Width SD 45.8 fl (35.1-43.9); Red Blood Count 3.34 M/mm3 (4.2-5.4); White Blood Count 8.8 K/mm3 (4.4-11.0)
[2024-03-28 07:35] LABS: ALB/GLOB Ratio 1.1 RATIO (0.9-2.4); AST(SGOT) 28 U/L (15-37); Alanine Aminotransfer ALT/SGPT 35 U/L (13-56); Albumin, Serum 2.9 g/dL (3.2-5.0); Alkaline Phosphatase 46 U/L (45-117); Anion Gap 5 (5-15); BUN 12 mg/dL (7-18); BUN/Creat Ratio 16.5 RATIO (10-20); Calcium,Total 7.9 mg/dL (8.5-10.1); Chloride 112 mmol/L (98-107); Creatinine, Serum 0.73 mg/dL (0.55-1.02); EST Glomerular Filtration Rate 87 mL/min (>60); Est Glom Filt Rate - Afr Amer 105 mL/min (>60); Estimated Creatinine Clearance 84.47 ml/min; Globulin 2.6 g/dL (2.2-4.2); Glucose 107 mg/dL (74-106); Potassium 3.7 mmol/L (3.5-5.1); Protein, Total 5.5 g/dL (6.4-8.2); Sodium Level 141 mmol/L (136-145)
[2024-03-28] MEDS: Ezetimibe 10 MG Tablet PO (09:42)
--- NOTE | 2024-03-28 12:10 | CASEMGMT ---
ARNIE GIBBS Assessment Face to Face with patient for initial transition planning/care coordination assessment. ARNIE GIBBS introduced self and role at [facility], pt voices understanding. Pt is A&Ox4 and is resting comfortably in bed and is calm. Care providers, pharmacy, and demographics verified. 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 Pt denies all other DME uses or needs. HHC/SNF: Denies history or needs Pt?s goal: Home Plan: Home once medically ready. Pt 6-Click score is 23. Pt denies the need for HHC or OP Tx and that she has plenty of family support at home. Pt denies any further questions or concerns at this time. Basil Morales RN, CM
--- NOTE | 2024-03-28 12:34 | PCM.HOSP.N ---
Hospitalist Note Patient status post IV fluids patient reports pain is slightly better but still present, continue IV fluids, Zosyn, DC vancomycin given MRSA swab negative, follow cultures. Patient still feeling very weak and having pain, supportive care
[2024-03-28] MEDS: Acetaminophen 325 MG Tablet 650 MG PO ×3 (13:21→22:02)
[2024-03-28] MEDS: oxyCODONE 5 MG Tablet PO (16:34)
[2024-03-28] MEDS: 0.9% Normal Saline (1000mL) 1,000 ML 50 ML IV (16:34)
[2024-03-28] MEDS: Rivaroxaban 20 MG Tablet PO (21:04)
[2024-03-29] MEDS: Acetaminophen 325 MG Tablet 650 MG PO (02:36)
[2024-03-29 02:40] VITALS: BP 125/72; PULSE 76; RESP 18; TEMP 36.9; O2SAT 96
[2024-03-29] MEDS: Piperacil/Tazobactam 3.375 GM in 0.9% Normal Saline (50mL MB+) 50 ML IV (05:02)
[2024-03-29 05:03] LABS: Absolute Lymphocyte Count 0.89 X10^3/uL (0.83-4.51); Absolute Neutrophil Count 5.1 X10^3/uL (2.0-7.7); Basophil# 0.03 X10^3/uL; Basophil% 0.5 % (0-1); Eosinophil# 0.05 X10^3/uL; Eosinophils% 0.8 % (0-5); Hematocrit 29.1 % (37-47); Hemoglobin 9.5 g/dL (12.0-15.0); Lymphocyte # 0.89 X10^3/ul (0.83-4.51); Lymphocyte % 13.8 % (19-41); Mean Corp Hgb Conc 32.6 g/dL (32-36); Mean Corpuscular Hgb 29.1 pg (27.0-32.0); Mean Corpuscular Volume 89.3 fL (81-99); Mean Platelet Vol. 8.6 fl (6.2-12.0); Monocyte# 0.32 X10^3/uL; NRBC Flagged by Analyzer 0 % (0-5); Neutrophil # 5.14 X10^3/uL (2.7-7.7); Neutrophil % 79.4 % (47-70); Platelet Count 156 K/mm3 (150-450); RBC Distribution Width CV 14.4 % (11.6-14.6); RBC Distribution Width SD 46.5 fl (35.1-43.9); Red Blood Count 3.26 M/mm3 (4.2-5.4); White Blood Count 6.5 K/mm3 (4.4-11.0)
[2024-03-29 05:35] LABS: Anion Gap 6 (5-15); BUN 10 mg/dL (7-18); BUN/Creat Ratio 16.3 RATIO (10-20); Calcium,Total 8.1 mg/dL (8.5-10.1); Chloride 110 mmol/L (98-107); Creatinine, Serum 0.61 mg/dL (0.55-1.02); EST Glomerular Filtration Rate 105 mL/min (>60); Est Glom Filt Rate - Afr Amer 127 mL/min (>60); Estimated Creatinine Clearance 101.89 ml/min; Glucose 100 mg/dL (74-106); Potassium 3.4 mmol/L (3.5-5.1); Sodium Level 141 mmol/L (136-145)
[2024-03-29 06:00] VITALS: BMI 30.9
[2024-03-29 08:25] VITALS: O2SAT 94
[2024-03-29 08:56] VITALS: BP 119/72; PULSE 84; RESP 18; TEMP 36.6; O2SAT 95
[2024-03-29] MEDS: Ezetimibe 10 MG Tablet PO (08:58)
--- NOTE | 2024-03-29 12:20 | DCINST_ITS ---
Discharge Instructions Diet Discharge Diet: Low fat / Low cholesterol Activity Discharge Activity: Return to Normal Activity Dressing / Incision Call your doctor if you observe: Fever of 101 or Higher, Shortness of breath, Dizziness, Fainting spells, Swelling in the ankles, Chest pain and Increased palpitations (irregular heartbeat) Follow Up Care Test Results: Test results from this visit will be discussed in further detail at your follow- up appointment, if applicable. Discharge Plan Admission Admit Date/Time: 03/28/24 02:21 Attending Provider: Abiodun Hendricks Primary Care Provider: Devon Braden Consulting Providers: Cheryl Parr; Octavia Collins Discharge Orders/Prescriptions Prescriptions: New amoxicillin-pot clavulanate 875-125 mg tablet 1 tab PO BID Qty: 14 0RF Continued ezetimibe 10 mg tablet 10 mg PO DAILY Xarelto 20 mg tablet 20 mg PO QPM Referrals / Follow Up: Devon Braden DO [Primary Care Provider] - Within 1 Week Disposition Disposition (needs filled in before D/C Order can be placed): Home, Self Care
--- NOTE | 2024-03-29 14:02 | NURSING ---
Pt discharged home with family
--- NOTE | 2024-03-29 14:20 | DS.PCM_ITS ---
Providers Date of Admission: 03/28/24 Primary Care Physician: Dr. Devon Braden, DO Reason For Visit: ? CELLULITIS Diagnosis Discharge Diagnosis (1) Cellulitis of leg, right: Status: Acute Code(s): L03.115 - Cellulitis of right lower limb Medications at Discharge Home Medications ezetimibe 10 mg tablet 10 mg PO DAILY 03/27/24 rivaroxaban 20 mg tablet (Xarelto) 20 mg PO QPM 03/27/24 amoxicillin 875 mg-potassium clavulanate 125 mg tablet 1 tab PO BID #14 tabs 03/29/24 Hospital Course Operations None Procedures None Summary of Care Provided Minutes Spent on Discharge: 34 Hospital Course: Per HPI: The patient is a 63 y/o F w/ PMHx: Hx VTE (DVT, PE), PAF, HLD, Chronic anemia who presents to the [facility] ED on 03/28/24 with history of right proximal thigh discomfort and aching starting approximately 1400 on day prior to presentation noted to be continuous with pain waxing and waning ranging mild to severe in severity with pain specifically in the medial right thigh and also into the inguinal region with chills but no specific fever with self administration of ibuprofen with no recent URI type symptoms or any nausea, emesis, abdominal pain or diarrhea no urinary symptoms with no associated skin lesions over that region but given ongoing pain and previous history of DVT despite her ongoing usage of her Xarelto prompted ED evaluation. Her pain at its worst prior to treatment in the ED was 10 out of 10 in severity now down to 2 out of 10 following ED pain medication administration. She still is significantly tender with any attempted palpation of the right groin and right upper medial inner thigh region. She denies any recent injury or fall. Workup in the ED included Tmax 100.1, heart rate 109, BP 133/75, respiratory rate 16, 98% on room air with most recent current repeat vital signs T98.1, heart rate 86, BP 96/57, respiratory rate 16, 98% on room air, CBC with WC 10.8, hemoglobin 0.8, MCV 87.3, platelet 205 with left shift and lymphopenia, CMP with glucose 123 otherwise unremarkable, lactic acid 1.0, duplex ultrasound right lower extremity with no evidence of any DVT, follow-up right CT lower extremity with contrast with hazy fat stranding in the right inguinal region without any organized fluid collection with no acute osseous abnormality of the left thigh, blood culture x 2 pending per ED. In the ED patient ministered 2 L normal saline, Zofran 4 mg IV x 1, morphine 4 mg IV x 1, zosyn IV x 1. Hospital Course: 1. Right inguinal cellulitis?63-year-old female presented to the hospital with right lower extremity pain and some mild redness. No leukocytosis and no sign of deeper abscess on CT scan. Venous Doppler was negative for clot. She remained afebrile without a leukocytosis during her hospital stay and I discussed with her the plan for possible discharge today she expressed understanding of the risk benefits of going home and would rather go home today and continue oral antibiotics. Her vancomycin was discontinued yesterday afternoon as her MRSA screen came back negative. I discussed with her that we did not have any blood culture result that they were likely going to be negative since she has no leukocytosis or fever, she would prefer still to go home today. She denies any significant pain today other than a localized point tenderness to an area of what feels like induration. I discussed with her the need to follow-up with her PCP within a week and that if she were to have any worsening symptoms including increasing redness, pain, fevers and chills that she is to return to the hospital. 2. History of PE, hyperlipidemia are all chronic medical conditions which complicate her care. Her home medications were continued where appropriate Physical Exam Narrative General: Alert, Oriented x3, Cooperative, No apparent distress HEENT: Atraumatic, PERRLA, EOMI, Normocephalic Oral: Moist Mucosa Neck: Supple, No JVD Lungs: Diminished, Normal air movement, No rhonchi, No wheeze, No rales Cardiovascular: Regular rate, Regular Rhythm, Normal S1, Normal S2, No murmurs Abdomen: Soft, Non Tender, Non-Distended, No Hepato-splenomegaly Extremities: No edema, Capillary Refill Less than 3 Seconds Skin: Right inguinal slight redness with induration no fluctuance Musculoskeletal: No Tenderness to Palpation of Joints or Extremities Neurological: No focal neurological deficits, Motor Exam 5/5 strength throughout, Sensory exam intact to light touch and pain Psych/Mental Status: Normal Affect, Appropriate Weight / BMI Weight Weight: 185 lb 11.2 oz Body Mass Index (BMI) 30.9 ABG / Lab / Microbiology Data 03/29/24 04:30 03/29/24 04:30 Laboratory: Laboratory Results - last 24 hr 03/29/24 04:30: WBC 6.5, RBC 3.26 L, Hgb 9.5 L, Hct 29.1 L, MCV 89.3, MCH 29.1, MCHC 32.6, RDW Std Deviation 46.5 H, RDW Coeff of Becky 14.4, Plt Count 156, MPV 8.6, Immature Gran % (Auto) 0.500, Neut % (Auto) 79.4 H, Lymph % (Auto) 13.8 L, Hudspeth % (Auto) 5.0, Eos % (Auto) 0.8, Baso % (Auto) 0.5, Absolute Neuts (auto) 5.1, Absolute Lymphs (auto) 0.89, Nucleated RBC % 0, Sodium 141, Potassium 3.4 L , Chloride 110 H, Carbon Dioxide 25.0, Anion Gap 6, BUN 10, Creatinine 0.61, Estim Creat Clear Calc 101.89, Est GFR (MDRD) Af Amer 127, Est GFR (MDRD) Non-Af 105, BUN/Creatinine Ratio 16.3, Glucose 100, Calcium 8.1 L D/C Instructions Discharge Diet: Low fat / Low cholesterol Call your doctor if you observe: Fever of 101 or Higher, Shortness of breath, Dizziness, Fainting spells, Swelling in the ankles, Chest pain and Increased palpitations (irregular heartbeat) Meaningful Use Info Meaningful Use Meaningful Use Diagnoses (Choose all that apply): None applicable Ischemic Stroke Statin Dosing Therapy Reference: STATIN DOSE THERAPY REFERENCE: * Patients > 75 years receive moderate or high dose statin therapy. * Patients 75 years or YOUNGER should receive HIGH intensity statin dose unless contraindicated. You will be required to document reason for non-treatment if statin daily dose does not meet guidelines. HIGH DOSE STATIN THERAPY DAILY Atorvastatin > than or = to 40 mg Rosuvastatin > than or = to 20 mg Amlodipine + Atorvastatin > than or = to 2.5/40 mg Ezetimibe + Simvastatin 10/80 mg Simvastatin 80mg Discharge Plan Admission Admit Date/Time: 03/28/24 02:21 Attending Provider: Abiodun Hendricks Primary Care Provider: Devon Braden Consulting Providers: Cheryl Parr; Octavia Collins Discharge Orders/Prescriptions Prescriptions: New amoxicillin-pot clavulanate 875-125 mg tablet 1 tab PO BID Qty: 14 0RF Continued ezetimibe 10 mg tablet 10 mg PO DAILY Xarelto 20 mg tablet 20 mg PO QPM Referrals / Follow Up: Devon Braden DO [Primary Care Provider] - Within 1 Week Disposition Disposition (needs filled in before D/C Order can be placed): Home, Self Care Charges/Coding Visit Charges Inpatient E&M: 72688 Disch Hosp >30min
== END 2024-03-29 13:36 | disposition home or self-care (01) | DRG 603 ==
LOC: ED 03-28 02:21 → PCU 03-28 03:24
PROVIDERS: Internal Medicine; Admitting Provider Family Medicine; Emergency Provider Emergency Medicine; PCP Family Medicine; Visit Provider Family Medicine
DX: L03.115 Cellulitis of right lower limb (principal); D64.9 Anemia, unspecified; I95.9 Hypotension, unspecified; I48.0 Paroxysmal atrial fibrillation; E78.5 Hyperlipidemia, unspecified; Z79.01 Long term (current) use of anticoagulants; Z86.718 Personal history of other venous thrombosis and embolism; Z79.899 Other long term (current) drug therapy; Z90.49 Acquired absence of other specified parts of digestive tract; Z86.711 Personal history of pulmonary embolism
CPT/HCPCS: 36415; 73701; 80048; 80053; 83605; 84145; 85025; 85652; 86140; 87040; 87641; 93971; 94668; 97162; 97530; 99252; 99285; J7030; J7040; Q9967; A4216; G0463; J2405